=== PATIENT | male | born 1975 | race Two or more races ===

== ENCOUNTER 2024-03-27 06:50 | Day surgery (SDC) | payer MEDICAID, SELFPAY ==
[2024-03-27] VITALS (11 sets, daily range): BP systolic 118–174; BP diastolic 86–121; PULSE 73–106; RESP 12–20; TEMP 36.3–37.1; O2SAT 94–100
[2024-03-27] MEDS: SODIUM CHLORIDE 0.9% 100 ML IV (08:12)
[2024-03-27] MEDS: DiphenhydrAMINE INJ 50 MG/ML VIAL 25 MG IV (08:13)
[2024-03-27] MEDS: MIDAZOLAM INJ 1 MG/ML VIAL 2 ML (ASD USE ONLY) 2 MG IV (08:13)
[2024-03-27] MEDS: fentaNYL CIT INJ 50 mCg/ML AMP 2ML (ASD USE ONLY) IV (08:13)
[2024-03-27] MEDS: hydrALAZINE INJ 20 MG/ML VIAL 10 MG IV (08:22)
== END 2024-03-27 09:24 | disposition home or self-care (01) ==
PROVIDERS: Referring Provider Surgery; Visit Provider Surgery
PROC: 0DBE8ZX Excision of Large Intestine, Via Natural or Artificial Opening Endoscopic, Diagnostic (ICD-10-PCS; CPT 45380; principal; 2024-03-27 08:00)
DX: K57.31 Diverticulosis of large intestine without perforation or abscess with bleeding (principal); Z86.0101 Personal history of adenomatous and serrated colon polyps
CPT/HCPCS: 45378; J0360; J1200; J2250; J3010; J7050